=== PATIENT | female | born 1995 | race Caucasian/White ===

== ENCOUNTER 2017-08-14 15:17 | Emergency (ER) | payer OTHER ==
[2017-08-14 15:32] VITALS: BP 114/59; PULSE 92; TEMP 100.1; BMI 36.3
--- NOTE | 2017-08-14 15:37 | PDOC ---
History of Present Illness - General Stated Complaint: FEVER, COUGH Time Seen by Provider: 08/14/17 15:29 History Source: Patient Exam Limitations: No Limitations - History of Present Illness Initial Comments: 08/14/17 15:30 This is a 21yo woman without PMH who presents to the ER for 2 days of fever, moist cough, sore throat and body aches. She states she received her flu shot earlier this year. She brought her daughter in for evaluation for similar symptoms. Past History - Past Medical History Allergies/Adverse Reactions: Allergies Allergy/AdvReac Type Severity Reaction Status Date / Time No Known Allergies Allergy Verified 07/11/12 04:12 Home Medications: Ambulatory Orders No Home Medications 0 dose .ROUTE UTDICT 07/11/12 Acetaminophen [Tylenol .Regular Strength -] 325 mg PO Q4H PRN #2 tablet Ibuprofen [Motrin -] 200 mg PO Q4H PRN #3 tablet 12/12/12 Oseltamivir Phosphate [Tamiflu -] 75 mg PO BID #10 capsule 08/14/17 Asthma: No Cancer: No Cardiac Disorders: No Diabetes: No HTN: No Seizures: No Thyroid Disease: No - Immunization History Td Vaccination: Yes Immunization Up to Date: Yes - Suicide/Smoking/Psychosocial Hx Smoking Status: No Smoking History: Never smoked Years of Tobacco Use: 0 Number of Cigarettes Smoked Daily: 0 Cigars Per Day: 0 Hx Alcohol Use: No Drug/Substance Use Hx: No Substance Use Type: None Hx Substance Use Treatment: No Review of Systems - Review of Systems Able to Perform ROS?: Yes Is the patient limited Gambian proficient: No Constitutional: Yes: See HPI HEENTM: Yes: See HPI Respiratory: Yes: See HPI Cardiac (ROS): No: Symptoms Reported ABD/GI: No: Symptoms Reported : No: Symptoms Reported Musculoskeletal: Yes: See HPI Integumentary: No: Symptoms Reported Neurological: Yes: See HPI *Physical Exam - Physical Exam General Appearance: Yes: Appropriately Dressed. No: Apparent Distress HEENT: positive: Pharyngeal Erythema. negative: Tonsillar Exudate, Tonsillar Erythema Neck: positive: Trachea midline, Supple Respiratory/Chest: positive: Lungs Clear, Normal Breath Sounds. negative: Respiratory Distress, Accessory Muscle Use Cardiovascular: positive: Regular Rhythm, Regular Rate. negative: Murmur Gastrointestinal/Abdominal: positive: Normal Bowel Sounds, Soft. negative: Tender Medical Decision Making - Medical Decision Making 08/14/17 15:38 A/P: 21yo woman with 2 days of fevers, moist cough, sore throat and body aches Pharyngeal erythema present. Nasal congestion present. Lungs CTAB Likely YENNI. I will treat with Tamiflu 75mg bid for 5 days. *DC/Admit/Observation/Transfer Diagnosis at time of Disposition: Influenza-like illness - Discharge Dispostion Disposition: HOME Condition at time of disposition: Stable Admit: No - Prescriptions Prescriptions: Oseltamivir Phosphate [Tamiflu -] 75 mg PO BID #10 capsule - Referrals - Patient Instructions Additional Instructions: Salt water garggles. Use humidified air while sleeping. Tylenol or motrin for fevers and pain. Tamiflu 75mg twice a day for 5 days. Return to ER for worsening symptoms or any other concerns. - Post Discharge Activity Forms/Work/School Notes: Back to Work
== END 2017-08-14 16:25 | disposition home or self-care (01) ==
LOC: JERFT 15:17
DX: J11.1 Influenza due to unidentified influenza virus with other respiratory manifestations (principal)
CPT/HCPCS: 99281-25

== ENCOUNTER 2018-11-14 14:29 | Emergency (ER) | payer OTHER ==
--- NOTE | 2018-11-14 14:40 | PDOC ---
Rapid Medical Evaluation Time Seen by Provider: 11/14/18 14:37 Medical Evaluation: Allergies Allergy/AdvReac Type Severity Reaction Status Date / Time No Known Allergies Allergy Verified 07/11/12 04:12 11/14/18 14:37 I have performed a brief in-person evaluation of this patient. The patient presents with a chief complaint of: body aches, throat pain since yesterday. reports subjective fever. Pertinent physical exam findings: 100.4F, tearing, uncomfrotable appearing, exudate to R tonsil I have ordered the following: rapid strep The patient will proceed to the ED for further evaluation.
[2018-11-14] MEDS ORDERED: ACETAMINOPHEN 325 MG TABLET (FP) PO ONE (14:41)
[2018-11-14 14:45] VITALS: BP 114/75; PULSE 95; TEMP 100.4; BMI 36.3
[2018-11-14] MEDS ORDERED: DEXAMETHASONE LIQUID 0.5 MG/5 ML 240 ML BULK BOTTLE PO ONE (16:05)
[2018-11-14] MEDS ORDERED: DEXAMETHASONE SOD PHOSPHATE 10 MG/1 ML VIAL ONE (16:06)
[2018-11-14] MEDS ORDERED: ACETAMINOPHEN 325 MG TABLET (FP) ONE (16:06)
--- NOTE | 2018-11-14 16:13 | PDOC ---
History of Present Illness - General Chief Complaint: Cold Symptoms Stated Complaint: WEAKNESS/COLD SYMPTOMS Time Seen by Provider: 11/14/18 14:37 History Source: Patient Exam Limitations: No Limitations - History of Present Illness Initial Comments: 11/14/18 16:08 HISTORY OF PRESENT ILLNESS: 22-year-old woman denies medical history presents emergency department for evaluation of sore throat, fevers and backache for the past 2 days. Patient's been taking Motrin with relief of pain and sore throat. Patient is unsure of any sick contacts. Patient denies any difficulty swallowing , coughing, chest pain, blurry vision, shortness of breath. No recent travel or sick contacts. PAST MEDICAL HISTORY: Denies past medical history SURGICAL HISTORY: Denies ALLERGIES: No known drug allergies REVIEW OF SYSTEMS General/Constitutional: Denies fever or chills. Denies weakness, weight change. HEENT: see HPI Cardiovascular: Denies chest pain or shortness of breath. Respiratory: Denies cough, wheezing, or hemoptysis. Gastrointestinal: Denies nausea, vomiting, diarrhea or constipation. Denies rectal bleeding. Genitourinary: Denies dysuria, frequency, or change in urination. Musculoskeletal: Denies joint or muscle swelling or pain. Denies neck or back pain. Skin and breasts: Denies rash or easy bruising. Neurologic: Denies headache, vertigo, loss of consciousness, or loss of sensation. Psychiatric: Denies depression or anxiety. Endocrine: Denies increased thirst. Denies abnormal weight change. Hematologic/Lymphatic: Denies anemia, easy bleeding, or history of blood clots. Allergic/Immunologic: Denies hives or skin allergy. Denies latex allergy. PHYSICAL EXAM General Appearance: Well-appearing, appropriately dressed. No apparent distress , no intoxication. HEENT: Oropharynx erythematous with 2+ tonsillar swelling and tonsillar exudate present with left greater than right. Uvula is midline. Mucous membranes moist. Neck: Supple. Trachea midline. No tenderness, rigidity, carotid bruit, stridor or thyromegaly. tender anterior cervical lymphadenopathy present with left greater than right. Respiratory/Chest: Lungs CTAB. No shortness of breath, chest tenderness, respiratory distress, accessory muscle use. No crackles, rales, rhonchi, stridor , wheezing, dullness Cardiovascular: RRR. S1, S2. No JVD, murmur, bradycardia, tachycardia. Gastrointestinal/Abdominal: Normal bowel sounds. Abdomen soft, non-distended. No tenderness or rebound tenderness. No organomegaly, pulsatile mass, guarding, hernia, hepatomegaly, splenomegaly. 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 Fully oriented, alert. Appropriate mood/affect. Motor strength 5/5. No appreciable EOM palsy, facial droop or sensory deficit. 11/14/18 16:09 Past History - Past Medical History Allergies/Adverse Reactions: Allergies Allergy/AdvReac Type Severity Reaction Status Date / Time No Known Allergies Allergy Verified 07/11/12 04:12 Home Medications: Ambulatory Orders Amoxicillin - [Amoxicillin 500mg Capsule -] 500 mg PO BID #20 capsule 11/14/18 Asthma: No Cancer: No Cardiac Disorders: No COPD: No Diabetes: No HTN: No Seizures: No Thyroid Disease: No - Immunization History Td Vaccination: Yes Immunization Up to Date: Yes - Suicide/Smoking/Psychosocial Hx Smoking Status: No Smoking History: Unknown if ever smoked Years of Tobacco Use: 0 Have you smoked in the past 12 months: No Number of Cigarettes Smoked Daily: 0 Cigars Per Day: 0 Information on smoking cessation initiated: No Hx Alcohol Use: No Drug/Substance Use Hx: No Substance Use Type: None Hx Substance Use Treatment: No *Physical Exam - Vital Signs Last Vital Signs Temp Pulse Resp BP Pulse Ox 100.4 F H 95 H 16 114/75 100 11/14/18 14:38 11/14/18 14:38 11/14/18 14:38 11/14/18 14:38 11/14/18 14:38 Medical Decision Making - Medical Decision Making 11/14/18 16:06 A/P: 22-year-old woman with sore throat for 2 days Tonsillar erythema present with exudate present bilaterally left greater than right Halitosis present Tender anterior cervical lymphadenopathy worse on the left than right Based on Cent[facility] criteria likely that of streptococcal pharyngitis 50% Rapid strep testing sent at triage positive for group A strep Tylenol 650 mg orally now Decadron 10 mg orally now Discharge home with prescription for amoxicillin 500 mg twice a day for the next 10 days I discussed the physical exam findings, ancillary test results and final diagnoses with the patient. I answered all of the patient's questions. The patient was satisfied with the care received and felt comfortable with the discharge plan and treatment plan. The patient will call their primary care physician within 24 hours to arrange follow-up and will return to the Emergency Department with any new, persistent or worsening symptoms. *DC/Admit/Observation/Transfer Diagnosis at time of Disposition: Strep pharyngitis - Discharge Dispostion Disposition: HOME Condition at time of disposition: Stable Decision to Admit order: No - Prescriptions Prescriptions: Amoxicillin - [Amoxicillin 500mg Capsule -] 500 mg PO BID #20 capsule - Referrals Referrals: Kristi Talbert MD [Primary Care Provider] - - Patient Instructions Printed Discharge Instructions: DI for Strep Throat Additional Instructions: Take amoxicillin as prescribed. Salt water garggles. Throw away your toothbrush in 3 days and start using a new toothbrush. No sharing of drinks, utensils or toothbrushes. Take Motrin as directed by school psychologist assistant's instructions. Return to ED for worsening fevers, worsening sore throat, chest pain, shortness of breath or any other concerns. - Post Discharge Activity Forms/Work/School Notes: Back to Work
== END 2018-11-14 16:12 | disposition home or self-care (01) ==
LOC: JERFT 14:29
DX: J02.0 Streptococcal pharyngitis (principal); B95.0 Streptococcus, group A, as the cause of diseases classified elsewhere
CPT/HCPCS: 87880; 99281-25

== ENCOUNTER 2022-06-13 10:23 | Emergency (ER) | payer OTHER ==
[2022-06-13 10:37] VITALS: BP 103/70; PULSE 89; RESP 20; TEMP 98.3; BMI 36.3
[2022-06-13] MEDS ORDERED: DEXAMETHASONE SOD PHOSPHATE 10 MG/1 ML VIAL IM ONE (12:38)
[2022-06-13] MEDS ORDERED: KETOROLAC TROMETHAMINE 30 MG/1 ML VIAL IM ONE (12:38)
[2022-06-13] MEDS ORDERED: DEXAMETHASONE SOD PHOSPHATE 10 MG/1 ML VIAL ONE (13:42)
[2022-06-13] MEDS ORDERED: KETOROLAC TROMETHAMINE 30 MG/1 ML VIAL ONE (13:43)
== END 2022-06-13 14:38 | disposition home or self-care (01) ==
LOC: JER 10:23
PROC: 3E0233Z Introduction of Anti-inflammatory into Muscle, Percutaneous Approach (ICD-10-PCS; principal; 2022-06-13)
PROC: 3E0233Z Introduction of Anti-inflammatory into Muscle, Percutaneous Approach (ICD-10-PCS; 2022-06-13)
DX: R05.1 Acute cough (principal); R09.81 Nasal congestion; J02.9 Acute pharyngitis, unspecified
CPT/HCPCS: 0241U-QW; 87651; 99284-25; J1100

== ENCOUNTER 2023-09-09 13:04 | Emergency (ER) | payer OTHER ==
[2023-09-09 13:11] VITALS: BP 123/84; PULSE 63; RESP 18; TEMP 98.4; BMI 37.3
[2023-09-09] MEDS ORDERED: ACETAMINOPHEN 500 MG TABLET (FP) ONE (14:40)
[2023-09-09] MEDS: ACETAMINOPHEN 500 MG TABLET (FP) PO ONE (14:42)
== END 2023-09-09 15:02 | disposition home or self-care (01) ==
LOC: JERFT 13:04 → JER 13:04 → JERFT 15:02
DX: R09.81 Nasal congestion (principal); R09.89 Other specified symptoms and signs involving the circulatory and respiratory systems; R05.9 Cough, unspecified; R50.9 Fever, unspecified; R11.2 Nausea with vomiting, unspecified; R06.02 Shortness of breath; J34.89 Other specified disorders of nose and nasal sinuses; J06.9 Acute upper respiratory infection, unspecified; Z20.822 Contact with and (suspected) exposure to COVID-19
CPT/HCPCS: 0241U-QW; 99283-25